=== PATIENT | male | born 1975 | race Caucasian/White ===

== ENCOUNTER 2024-08-16 13:15 | Inpatient (IN) | payer OTHER ==
[~2024-08-16] VITALS: Ht 190.5 cm; Wt 88.5 kg
[2024-08-16 13:43] LABS: BASOPHILS ABSOLUTE AUTO 0.02 K/mm3 (0.00-0.23); BASOPHILS PERCENT AUTO 0 % (0-2); EOSINOPHILS ABSOLUTE AUTO 0.04 K/mm3 (0.00-0.68); EOSINOPHILS PERCENT AUTO 0 % (0-6); Hematocrit 53.4 % (37.0-53.0); Hemoglobin 17.7 g/dL (13.5-17.5); IMMATURE GRAN ABSOLUTE AUTO 0.05 K/mm3 (0.00-0.10); IMMATURE GRAN PERCENT AUTO 1 % (0-1); LYMPHOCYTES PERCENT AUTO 24 % (21-46); MONOCYTES ABSOLUTE AUTO 0.96 K/mm3 (0.16-1.47); MONOCYTES PERCENT AUTO 9 % (4-13); Mean Corpuscular HGB 30.3 pg (26.0-34.0); Mean Corpuscular HGB Conc 33.1 g/dL (31.5-36.5); Mean Corpuscular Volume 91 fL (80-100); Mean Platelet Volume 11.5 fL (9.1-12.4); NEUTROPHILS ABSOLUTE AUTO 6.98 K/mm3 (1.96-9.15); NEUTROPHILS PERCENT AUTO 66 % (41-73); Platelet Count 245 K/mm3 (150-400); RDW Coefficient Variation 13.6 % (11.7-14.2); RDW Standard Deviation 45.5 fL (35.1-46.3); Red Blood Cell Count 5.85 M/mm3 (4.30-5.90); White Blood Cell Count 10.65 K/mm3 (4.00-11.30)
[2024-08-16] MEDS ORDERED: Aspirin 325 MG Tab PO ONE (13:50)
[2024-08-16 13:56] LABS: Albumin, Blood 3.3 g/dL (3.4-5.0); Albumin/Globulin Ratio 1.1 (0.8-1.8); Bun/Creatinine Ratio 20.5 (12.0-20.0); Calcium, Blood 8.2 mg/dL (8.5-10.1); Creatinine, Blood 1.22 mg/dL (0.60-1.20); Globulin, Blood 3.1 g/dL (2.2-4.0); Potassium, Blood 4.4 mmol/L (3.5-5.5); Total Protein, Blood 6.4 g/dL (6.4-8.2)
[2024-08-16] MEDS ORDERED: Furosemide 10 MG/ML 4ML Vial IV ONE (16:10)
[2024-08-16] MEDS ORDERED: HydrALAZINE HCl 20 MG / ML 1ML Vial IV PRN (16:30)
[2024-08-16] MEDS ORDERED: Ondansetron HCl 2 MG / ML 2ML Vial IV PRN (16:35)
[2024-08-16] MEDS ORDERED: Thiamine HCl 100 MG Tab PO SCH (17:00)
[2024-08-16] MEDS ORDERED: Multivitamins 1 Tab PO SCH (17:00)
[2024-08-16] MEDS ORDERED: Furosemide 10 MG/ML 4ML Vial IV SCH (18:00)
--- NOTE | 2024-08-16 18:30 | NUR ---
THIS RN OBTAINED REPORT FROM ER NURSE JARED. WILL REPORT TO ONCOMING NOC SHIFT RN.
[2024-08-16 20:26] VITALS: BP 152/105
--- NOTE | 2024-08-16 20:45 | NUR ---
NEW ADMIT PT ADMIT FOR POSS NEW ONSET CHF. PT EXPERIENCING SOB FOR A FEW WEEKS. PT REFERRED TO ED BY URGENT CARE. PT IS PLEASANT 48 Y/O. A/OX4. ABLE TO MAKE NEEDS KNOWN AND FOLLOW DIRECTIONS. PT INDEPENDENT IN THE ROOM. ON ROOM AIR. PT DENIES SAFETY CONCERNS. PT WORKS IN LOCAL [place] AND CURRENTLY LIVES WITH MOM. PT STATES HE IS A DAILY SMOKELESS TOBACCO USER. OFFERED NELSON PATCH; PT DECLINED. PT ALSO ADMITS TO HAVING A FEW DRINKS OF GIN DAILY BUT PT STATES HASN'T HAD A DRINK SINCE HE STARTED FEELING POORLY; IT HAS BEEN 2 WEEKS. PT STATES HE HAS NEVER EXPERIENCED WITHDRAWL FROM ALCOHOL. PT ORIENTED TO ROOM AND CALL LIGHT. THIS RN COMPLETED ADMISSION ASSESSMENT. PRIMARY DOCUMENTATION SPEC TO ASSUME CARE.
[2024-08-16 20:52] VITALS: BP 136/102
[2024-08-16 23:41] VITALS: BP 130/103
--- NOTE | 2024-08-17 01:51 | NUR ---
@0140 THIS NAIL ASSEMBLY MACHINE OPERATOR RECEIVED A CALL FROM THE [employer], NOTIFYING THAT THE PT IS HAVING ST-ELEVATIONS. PT IS ASYMPTOMATIC. THIS NAIL ASSEMBLY MACHINE OPERATOR NOTIFIED GRAEME COLEMAN, AND THIS NAIL ASSEMBLY MACHINE OPERATOR CALLED DR. MCKEON, THE [facility] HOSPITALIST. DR. MCKEON WAS ALSO NOTIFIED ABOUT PT'S HR AND DIASTOLIC BP ELEVATED. VS @2341: BP 130/103, P. 103. WILL CONTINUE TO MONITOR, PER DR. MCKEON'S TELEPHONE ORDER.
--- NOTE | 2024-08-17 03:18 | NUR ---
SHIFT SUMMARY PT ARRIVED TO THE MEDICAL FLOOR AT THE BEGINNING OF THIS SHIFT. TRANSMISSION MAINTENANCE SUPERVISORYUSEF COLEMAN COMPLETED THE ADMISSION ASSESSMENT. SEE NOTE. PT IS ON TELE, SEE PREVIOUS NOTE. PT IS ASYMPTOMATIC BUT EXPERIENCED ST-ELEVATIONS PER CAREER ADVISOR. DIASTOLIC BP ELEVATED, TACHYCARDIA. HOSPITALIST NOTIFIED, CONTINUING TO MONITOR. PT DENIES PAIN AND DISCOMFORT. INDEPENDENT WITHIN THE HOSPITAL ROOM. BED AT THE LOWEST POSITION, CALL LIGHT W/I REACH. PT IS A/O X4, ABLE TO MAKE HIS NEEDS KNOWN AND COOPERATIVE WITH CARE.
[2024-08-17 04:34] VITALS: BP 148/120
[2024-08-17 06:18] LABS: Bun/Creatinine Ratio 16.9 (12.0-20.0); Calcium, Blood 8.5 mg/dL (8.5-10.1); Creatinine, Blood 1.42 mg/dL (0.60-1.20); Potassium, Blood 3.6 mmol/L (3.5-5.5)
[2024-08-17 07:39] VITALS: BP 141/108
[2024-08-17] MEDS ORDERED: Empagliflozin 10 MG TAB PO SCH ×2 (13:30→14:00)
[2024-08-17] MEDS ORDERED: Metoprolol Succinate 25 MG TABCR PO SCH ×2 (13:30→14:00)
[2024-08-17] MEDS ORDERED: Dose Adjust by Pharmacy XX STA (14:30)
[2024-08-17] MEDS ORDERED: Heparin Sodium,Porcine/0.5 NS 500 ML IV SCH (14:35)
[2024-08-17] MEDS ORDERED: Heparin Sodium 5000 Units/ML 1ML MDV IV ONE (14:35)
[2024-08-17 14:47] LABS: Anti-Xa UFH, PHA Monitoring <0.10 IU/mL; International Normalized Ratio 1.26; Prothrombin Time Results 13.6 Sec (9.7-11.5)
[2024-08-17 15:59] VITALS: BP 133/115
[2024-08-17 16:02] LABS: U Amphetamine Screen Not Detected; U Barbituate Screen Not Detected; U Benzodiazapine Screen Not Detected; U Buprenorphine Screen Not Detected; U Cannabinoids Screen Not Detected; U Cocaine Screen Not Detected; U Methadone Screen Not Detected; U Methamphetamine Screen Not Detected; U Opiates Screen Not Detected; U Oxycodone Screen Not Detected; U Phencyclidine Screen Not Detected
--- NOTE | 2024-08-17 16:49 | NUR ---
AT APPROX 1640, METAL FILER REPORTED DARK RED URINE IN URINAL AT BEDSIDE. THIS RN EVALUATED URINE. PT STATED HE DID NOT HAVE PAIN WITH URINATION. CALLED AND SPOKE WITH DR. AUSTIN STATING TO STOP HEPARIN AND WILL REEVALUATE TOMORROW MORNING. HEPARIN STOPPED AT THIS TIME.
--- NOTE | 2024-08-17 18:37 | NUR ---
SHIFT SUMMARY: PT A&O X4. PLEASANT AND COOPERATIVE WITH CARE. ECHO COMPLETED THIS SHIFT SHOWING AN EF OF 20%. CARDIOLOGY CONSULTED WITH PT. PO MEDICATION AND IV HEPARIN STARTED THIS AFTERNOON. SHORTLY AFTER BEGINNING HEPARIN PT BEGAN VOIDING DARK URINE. CALLED AND SPOKE WITH DR. AUSTIN STATING TO HOLD HEPARIN UNTIL TOMORROW MORNING THEN REASSESS. PT URINE AT THIS TIME NOW PINK IN COLOR. PT INDEPENDENT IN ROOM. NO C/O PAIN THIS SHIFT. CALL LIGHT IN REACH. BED IN LOWEST POSITION.
[2024-08-17 19:52] VITALS: BP 145/102
[2024-08-17] MEDS ORDERED: Sacubitril/Valsartan 24 MG-26 MG Tab PO SCH (21:00)
[2024-08-18 00:22] VITALS: BP 136/95
--- NOTE | 2024-08-18 05:02 | NUR ---
A&O X4, IND . NOTICEABLE BRIGHT RED URINE ON URINAL AFTER VOIDING EVEN AFTER SEVERAL OCCASIONS IN THE DAY SHIFT. VSS & ASYMPTOMATIC. ADVISED TO MAINTAIN PROPER HYDRATION YET ADHERING TO THE 1500ML FLUID RESTRICTION PER DAY. KEPT HEPARIN ON HOLD AND MON FOR FURTHER BLEEDING SIGNS. INSTRUCTED ON CARDIOLYTE STRESS TEST AND KEPT NPO AFTER MN. PROVIDED COMFORT AND RESTED WELL AT NIGHT.
[2024-08-18 05:17] LABS: Hematocrit 53.9 % (37.0-53.0); Hemoglobin 18.1 g/dL (13.5-17.5); Mean Corpuscular HGB 30.5 pg (26.0-34.0); Mean Corpuscular HGB Conc 33.6 g/dL (31.5-36.5); Mean Corpuscular Volume 91 fL (80-100); Platelet Count 216 K/mm3 (150-400); RDW Coefficient Variation 13.5 % (11.7-14.2); RDW Standard Deviation 44.9 fL (35.1-46.3); Red Blood Cell Count 5.94 M/mm3 (4.30-5.90); White Blood Cell Count 8.46 K/mm3 (4.00-11.30)
[2024-08-18 05:25] VITALS: BP 131/96
[2024-08-18 05:39] LABS: Bun/Creatinine Ratio 13.2 (12.0-20.0); Calcium, Blood 8.6 mg/dL (8.5-10.1); Creatinine, Blood 1.51 mg/dL (0.60-1.20); Potassium, Blood 3.7 mmol/L (3.5-5.5)
[2024-08-18 07:23] VITALS: BP 129/99
[2024-08-18] MEDS ORDERED: Spironolactone 25 MG Tab PO SCH (09:00)
--- NOTE | 2024-08-18 09:00 | NUR ---
pt sitting up in bed awake a/ox4, pleasant and coopertive with care, follows commands well, denies pain at this time, lungs are clear t/o, resp even and unlabored, no cough noted, hrr, tele in place running sr with bbb and pvc's, trace edema noted to b/l le, ppp+2, cap refill <3 sec, vs stable, afebrile, piv to lac site is clear and patent, btx4, abd flat soft nontender, voids without diff, skin c/w/d, maew, up indep in room, bre, call light in reach.
[2024-08-18] MEDS ORDERED: Aminophylline 250MG / 10ML 10 ML Vial ONE (09:04)
[2024-08-18] MEDS ORDERED: Regadenoson 0.4 MG/5 ML SYRINGE ONE (09:04)
[2024-08-18] MEDS ORDERED: Dose Adjust by Pharmacy XX STA (10:31)
[2024-08-18] MEDS ORDERED: Apixaban 5 MG Tab PO SCH (13:00)
[2024-08-18] MEDS ORDERED: FURO40 PO (13:46)
[2024-08-18] MEDS ORDERED: JARDIANCE10 MG PO (13:46)
[2024-08-18] MEDS ORDERED: ELIQUIS5 M2 PO (13:46)
[2024-08-18] MEDS ORDERED: METO25ER PO (13:47)
[2024-08-18] MEDS ORDERED: ENTRESTO 24 MG1 EACH PO (13:48)
[2024-08-18] MEDS ORDERED: MULTIPLE VITAM1 EACH PO (13:48)
[2024-08-18] MEDS ORDERED: B-1100 M1 PO (13:49)
[2024-08-18] MEDS ORDERED: SPIR25 PO (13:49)
--- NOTE | 2024-08-18 14:40 | NUR ---
pt has been discharged to home, piv removed intact, went over discharge instructions with him, he verbalized understanding, faxed new medications to [facility], pt states he dosn't have any further questions. left via wheelchair with his father and nurse in attendence with all his belongings.
[2024-08-18] MEDS ORDERED: Metoprolol Succinate 25 MG TABCR PO SCH (21:00)
[2024-08-19] MEDS ORDERED: Furosemide 40 MG Tab PO SCH (09:00)
== END 2024-08-18 14:35 | disposition home or self-care (01) | DRG 291 ==
LOC: ER 13:15 → MEDS 13:16
PROVIDERS: Internal Medicine Cardiovascular Disease; Physician Assistant; ADMIT Internal Medicine
PROC: HZ2ZZZZ Detoxification Services for Substance Abuse Treatment (ICD-10-PCS; principal; 2024-08-17)
DX: I11.0 Hypertensive heart disease with heart failure (principal); I50.21 Acute systolic (congestive) heart failure; I44.7 Left bundle-branch block, unspecified; R79.89 Other specified abnormal findings of blood chemistry; F10.20 Alcohol dependence, uncomplicated; I51.3 Intracardiac thrombosis, not elsewhere classified; I27.20 Pulmonary hypertension, unspecified; R31.9 Hematuria, unspecified; R06.02 Shortness of breath; I42.6 Alcoholic cardiomyopathy; Z71.41 Alcohol abuse counseling and surveillance of alcoholic
CPT/HCPCS: 36415; 71046; 71260; 78452; 80048; 80053; 83735; 83880; 84484; 85025; 85027; 85379; 85520; 85610; 93005; 93010; 93017; 93306; 96374-59; 96376; 99285-25; A9270; A9500; G0378; J0280; J1644; J1938; J2785; Q9967

== ENCOUNTER → 2024-12-16 | Outpatient (CLI) | payer OTHER ==
[~2024-12-16] MED LIST: B-1100 M1 PO; ELIQUIS5 M2 PO; ENTRESTO 24 MG1 EACH PO; FURO40 PO; JARDIANCE10 MG PO; METO25ER PO; MULTIPLE VITAM1 EACH PO; SPIR25 PO
[2024-12-16 18:48] LABS: Hematocrit 44.5 % (37.0-53.0); Hemoglobin 14.6 g/dL (13.5-17.5); Mean Corpuscular HGB Conc 32.8 g/dL (31.5-36.5); Mean Corpuscular Volume 92 fL (80-100); NRBC ABSOLUTE 0.00 K/mm3 (0.00-0.02); NRBC Auto 0.0 /100 WBC (0.0-0.2); Platelet Count 299 K/mm3 (150-400); RDW Coefficient Variation 13.7 % (11.7-14.2); RDW Standard Deviation 47.1 fL (35.1-46.3)
[2024-12-16 19:13] LABS: Alanine Aminotransfer (ALT/SGP 37.0 U/L (12-78); Albumin, Blood 3.7 g/dL (3.4-5.0); Albumin/Globulin Ratio 1.1 (0.8-1.8); Anion Gap 6.0 mmol/L (3-11); Aspartate Aminotrans (AST/SGOT 18.0 U/L (12-37); Bilirubin, Total 0.3 mg/dL (0.1-1.0); Blood Urea Nitrogen 24.0 mg/dL (8-24); CO2, Blood 28.0 mmol/L (21-32); Calcium, Blood 9.0 mg/dL (8.5-10.1); Chloride, Blood 109.0 mmol/L (98-108); Creatinine, Blood 1.22 mg/dL (0.60-1.20); Globulin, Blood 3.5 g/dL (2.2-4.0); Glucose, Blood 82.0 mg/dL (70-99); Potassium, Blood 4.4 mmol/L (3.5-5.5); Sodium, Blood 139.0 mmol/L (136-145); Total Protein, Blood 7.2 g/dL (6.4-8.2)
== END ==
LOC: LAB 18:33 → LAB SHORT 18:33
PROVIDERS: Student in an Organized Health Care Education/Training Program
DX: I50.21 Acute systolic (congestive) heart failure (principal)
CPT/HCPCS: 80053; 85027